=== PATIENT | female | born 1950 | race Caucasian/White ===

== ENCOUNTER 2019-05-20 18:40 | Emergency (ER) | payer BC, MEDICARE ==
[2019-05-20 19:02] VITALS: BP 136/71
--- NOTE | 2019-05-20 19:37 | ERPHSYRPT ---
- History of Present Illness Time Seen by Provider: 05/20/19 19:26 Source: patient Exam Limitations: no limitations Patient Subjective Stated Complaint: Right ankle/lower leg injury Triage Nursing Assessment: Patient brought into ED via w/c and transferred self to bed. Patient A+O X3. Patient's skin pink, warm and dry. Patient complains of right ankle/lower leg injury after tripping while pulling weeds. Patient denies hitting head or losing consciousness. Patient's right ankle/lower leg noted to be slightly swollen. Patient complains of constant sharp pain 8/10. Patient unable to bear weight on right foot. Physician History: 60-year-old white female arrives with complaint of pain in her right lateral ankle and right lower leg symptoms since approximately 5:30 PM she states she tripped and fell in her driveway. She is complaining of the above noted pains she states she is unable to walk secondary to pain and has a decreased motion of her right ankle secondary to pain. Past medical history includes epilepsy, hypothyroidism Past surgical history is negative Social history negative tobacco positive occasional alcohol negative illicit drugs. Method of Injury: fell (tripped and fell) Occurred: just prior to arrival (5:30 PM today) Quality: constant Severity of Pain-Max: moderate Severity of Pain-Current: mild Lower Extremities Pain: leg: right (pain right lower leg), ankle: right (ppain right ankle) Modifying Factors: Improves With: movement, other (unable to bear weight right leg) Allergies/Adverse Reactions: Penicillins Allergy (Verified 05/20/19 19:10) Hx Influenza Vaccination/Date Given: No Hx Pneumococcal Vaccination/Date Given: No Immunizations Up to Date: Yes - Review of Systems Constitutional: No Fever, No Chills Eyes: No Symptoms Ears, Nose, & Throat: No Symptoms Respiratory: No Cough, No Dyspnea Cardiac: No Chest Pain, No Edema, No Syncope Abdominal/Gastrointestinal: No Abdominal Pain, No Nausea, No Vomiting, No Diarrhea Genitourinary Symptoms: No Dysuria Musculoskeletal: No No Symptoms (right leg and ankle painworse with movement and palpation) Skin: No Rash Neurological: No Dizziness, No Focal Weakness, No Sensory Changes Psychological: No Symptoms Endocrine: No Symptoms All Other Systems: Reviewed and Negative - Past Medical History Pertinent Past Medical History: Yes Neurological History: Epilepsy ENT History: No Pertinent History Cardiac History: No Pertinent History Respiratory History: No Pertinent History Endocrine Medical History: Hypothyroidism Musculoskeletal History: No Pertinent History GI Medical History: No Pertinent History History: No Pertinent History Psycho-Social History: No Pertinent History Female Reproductive Disorders: No Pertinent History - Past Surgical History Past Surgical History: No Neuro Surgical History: No Pertinent History Cardiac: No Pertinent History Respiratory: No Pertinent History Gastrointestinal: No Pertinent History Genitourinary: No Pertinent History Musculoskeletal: No Pertinent History Female Surgical History: No Pertinent History - Social History Smoking Status: Never smoker Exposure to second hand smoke: No Drug Use: none Patient Lives Alone: Yes - Female History Hx Now: No - Nursing Vital Signs Nursing Vital Signs: Initial Vital Signs Temperature 98.4 F 05/20/19 19:00 Pulse Rate 76 05/20/19 19:00 Respiratory Rate 20 05/20/19 19:00 Blood Pressure 136/71 05/20/19 19:00 O2 Sat by Pulse Oximetry 97 05/20/19 19:00 Pain Scale Pain Intensity 0 - Physical Exam General Appearance: mild distress, alert Eyes, Ears, Nose, Throat Exam: moist mucous membranes Neck Exam: non-tender, supple Cardiovascular/Respiratory Exam: chest non-tender, normal breath sounds, regular rate/rhythm, no respiratory distress Gastrointestinal/Abdominal Exam: non-tender, guarding Back Exam: normal inspection, No vertebral tenderness Hips Exam: bilateral: non-tender, normal inspection, normal range of motion, no evidence of injury Legs Exam: right leg: other (right right distal leg tender with palpation), left leg: non-tender, normal inspection, normal range of motion, no evidence of injury Knees Exam: bilateral knee: non-tender, normal inspection, normal range of motion Ankle Exam: right ankle: bone tenderness (right lateral ankle tender with palpation), limited range of motion (ddecreased range of motion right ankle secondary to pain), swelling (swelling right lateral ankle), left ankle: non- tender, normal inspection, normal range of motion, no evidence of injury Foot Exam: bilateral foot: non-tender, normal inspection, normal range of motion , no evidence of injury DTR - Lower Extremities Exam: ankle (R): 2+, ankle (L): 2+ Neuro/Tendon Exam: normal sensation, normal motor functions Mental Status Exam: alert, oriented x 3, cooperative Skin Exam: normal color, warm, dry SpO2 Interpretation: normal (97%) SpO2: 97 - Course Nursing assessment & vital signs reviewed: Yes - Radiology Exams Right Lower Leg X-ray Interpretation: Interpreted by me (no fractures no subluxation) Right Ankle X-ray Interpretation: Interpreted by me (no fractures, no subluxation) Ordered Tests: Active Orders 24 hr Category Date Time Status Cold Application STAT Care 05/20/19 19:03 Active Crutches STAT Care 05/20/19 20:05 Active Splint STAT Care 05/20/19 20:05 Active ANKLE (3 VIEWS) Stat Exams 05/20/19 19:31 Taken LOWER LEG Stat Exams 05/20/19 19:31 Taken - Progress Progress: improved Progress Note: 05/20/19 19:58 Patient offered pain medication she does not want any she does not want any Tylenol or [place]. X-ray right ankle (my read) no fracture no subluxation there is lateral soft tissue swelling. X-ray right lower leg no fracture no subluxation (my read). Will go ahead and place an air cast on the patient's right ankle place her on crutches she states she has a cast boot at home. - Departure Departure Disposition: Home Clinical Impression: Right ankle sprain Qualifiers: Encounter type: initial encounter Involved ligament of ankle: unspecified ligament Qualified Code(s): S93.401A - Sprain of unspecified ligament of right ankle, initial encounter Condition: Fair Critical Care Time: No Referrals: SOM FIGUEROA [Primary Care Provider] - Additional Instructions: Return home. Ice and elevate your right ankle 24-48 hours. Crutches weightbearing as tolerated. Tylenol every 4 hours as needed for pain. Followup with your family DrKiesha if symptoms worse, no better in 48 hours, or persist longer than one week. Your x-rays have been preliminarily read, they will be reread tomorrow you'll be contacted if any discrepancies are noted.
[2019-05-20 19:57] VITALS: PULSE 64
[2019-05-20 19:59] VITALS: O2SAT 97
--- NOTE | 2019-05-21 10:00 | XRAY ---
Exam: 3 view right ankle series from 05/20/2019. Comparison: None. Indication: Patient fell, complains of lateral right lower leg/ankle pain. Findings: AP, oblique, and crosstable lateral films of the right ankle were obtained. I see mild soft tissue swelling overlying the lateral malleolus. The distal left fibula appears intact. There is slight nonuniformity of the right ankle mortise on the AP image with the lateral aspect appearing slightly less than 1 mm wider than the medial aspect. The significance of this is equivocal, but unknown. In addition, I see a 5.5 mm in length linear cortical density at the inferior margin of the medial malleolus of the distal right tibia on both the AP and oblique images. I'm given no history that the patient hurts medially. A subtle cortical avulsion injury of indeterminate age is not excluded. The posterior margin of the distal right tibia appears intact. No other abnormality of the right hindfoot is seen. Impression: 1. There is mild soft tissue swelling overlying the lateral malleolus. However, no acute fracture of the distal right fibula is seen. 2. However, there is a tiny 5.5 mm in length linear cortical density adjacent to the inferior margin of the medial malleolus of the distal right tibia. I am given no history that the patient hurts medially. This might represent a remote cortical avulsion injury. Correlate with history. 3. Slight nonuniformity of the right ankle mortise is seen, as discussed above.
--- NOTE | 2019-05-21 10:04 | XRAY ---
Exam: Two-view right lower leg series from 05/20/2019. Comparison: None. Indication: 68-year-old female fell, lateral right lower leg/ankle pain. Findings: AP and crosstable lateral views of the right lower leg were obtained. I again see mild soft tissue swelling overlying the lateral malleolus. However, no definite fracture of the left tibia or fibula shaft is seen. I again see a tiny linear cortical density adjacent to the inferior margin of the medial malleolus of the distal right tibia on the AP image. See right ankle report. No radiopaque soft tissue foreign body is seen. Impression: 1. No acute fracture of the right tibia or fibula shaft is seen. 2. I again see a tiny linear cortical density adjacent to the inferior margin of the medial malleolus of the distal right tibia. Clinical significance is equivocal, but unknown. Evidently, the patient does not hurt on the medial side of her right ankle. Correlate clinically regarding the possibility of a cortical avulsion injury at this site in the past.
== END 2019-05-20 20:31 | disposition home or self-care (01) ==
LOC: ED 18:40
DX: S93.401A Sprain of unspecified ligament of right ankle, initial encounter (principal); W01.198A Fall on same level from slipping, tripping and stumbling with subsequent striking against other object, initial encounter; Z91.81 History of falling; Y93.H2 Activity, gardening and landscaping
CPT/HCPCS: 73590; 73610; 99284